=== PATIENT | male | born 1975 | race Caucasian/White ===

== ENCOUNTER 2017-01-18 08:20 | Emergency (ER) | payer OTHER ==
[2017-01-18 08:24] VITALS: TEMP 98.1; BMI 29.1
--- NOTE | 2017-01-18 09:00 | PDOC ---
History of Present Illness - General Chief Complaint: Palpitations Stated Complaint: PALPITATIONS Time Seen by Provider: 01/18/17 08:32 - History of Present Illness Initial Comments: 01/18/17 08:53 41 yo M with h/o HTN presents with palpitations. Pt. reports 48 hours ago experiencing positional dizziness described as room spinning and one episode of biliary emesis. Dizziness was aggravated with head movement. Dizziness has resolved this AM but patient reports onset of right arm numbness/tingling in fingertips. Palpitations of 24 hours duration. Also complains of general fatigue and posterior headache of 24 hour duration. + chronic chest pain and intermittent blurred vision. Denies fevers/chills, SOB, constipation/diarrhea, LOC, weakness. States that he was seen in ED ( 09/09/15) with similar complaints and negative head CT, and negative laboratory evaluation. PCP. Dr. Roberson. Drink 2 cups of coffee/day. 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 Past History - Past Medical History Allergies/Adverse Reactions: Allergies Allergy/AdvReac Type Severity Reaction Status Date / Time No Known Allergies Allergy Verified 01/18/17 08:25 Home Medications: Ambulatory Orders NK [No Known Home Medication] 09/09/15 Other medical history: denies - Immunization History Immunization Up to Date: Yes - Psycho/Social/Smoking Cessation Hx Suicidal Ideation: No Smoking History: Never smoked Hx Alcohol Use: No Drug/Substance Use Hx: No Review of Systems - Review of Systems Comments:: 01/18/17 09:02 GENERAL/CONSTITUTIONAL: No fever or chills. No weakness. HEAD, EYES, EARS, NOSE AND THROAT: No change in vision. No ear pain or discharge. No sore throat.- CARDIOVASCULAR: + chest pain. No shortness of breath RESPIRATORY: No cough, wheezing, or hemoptysis. GASTROINTESTINAL: No nausea, vomiting, diarrhea or constipation. GENITOURINARY: No dysuria, frequency, or change in urination. MUSCULOSKELETAL: + Headache. No joint or muscle swelling or pain. No neck or back pain. SKIN: No rash NEUROLOGIC: + vertigo. No loss of consciousness, or change in strength. . ENDOCRINE: No increased thirst. No abnormal weight change HEMATOLOGIC/LYMPHATIC: No anemia, easy bleeding, or history of blood clots. ALLERGIC/IMMUNOLOGIC: No hives or skin allergy. *Physical Exam - Vital Signs Last Vital Signs Temp Pulse Resp BP Pulse Ox 98.1 F 77 18 146/98 100 01/18/17 08:23 01/18/17 08:23 01/18/17 08:23 01/18/17 08:23 01/18/17 08:23 - Physical Exam Comments: 01/18/17 09:04 GENERAL: Awake, alert, and fully oriented, in no acute distress HEAD: No signs of trauma, normocephalic, atraumatic EYES: PERRLA, EOMI, sclera anicteric, conjunctiva clear ENT: Auricles normal inspection, hearing grossly normal, nares patent, oropharynx clear without exudates. Moist mucosa NECK: Normal ROM, supple, no lymphadenopathy, JVD, or masses LUNGS: No distress, speaks full sentences, clear to auscultation bilaterally HEART: Regular rate and rhythm, normal S1 and S2, no murmurs, rubs or gallops, peripheral pulses normal and equal bilaterally. EXTREMITIES: Normal inspection, Normal range of motion, no edema. No clubbing or cyanosis. NEUROLOGICAL: Cranial nerves II through XII grossly intact. Normal speech, normal gait, no focal sensorimotor deficits SKIN: Warm, Dry, normal turgor, no rashes or lesions noted. Heart Score/ECG Review - History History: Slightly suspicious - Electrocardiogram EKG: Normal - Age Age: </= 45 - Risk Factors Risk Factors Heart Score: Yes Hx Hypertension, Yes Hx Diabetes - ECG Intrepretation Rhythm: Regular Rhythm - Eighty Four Eighty Four: Left Eighty Four Deviation - QRS Widened: RBBB - ST and T Non Specific ST-T Wave changes: Yes ED Treatment Course - LABORATORY CBC & Chemistry Diagram: 01/18/17 09:00 01/18/17 09:00 - ADDITIONAL ORDERS Additional order review: Laboratory Results 01/18/17 01/18/17 01/18/17 09:00 08:49 08:49 Sodium 138 Potassium 3.8 Chloride 103 Carbon Dioxide 27 Anion Gap 8 BUN 19 H Creatinine 0.9 Creat Clearance w eGFR > 60 Random Glucose 116 H D Calcium 9.1 Total Bilirubin 0.6 D AST 22 D ALT 68 D Alkaline Phosphatase 117 Creatine Kinase 92 Troponin I < 0.02 Total Protein 7.7 Albumin 4.4 TSH 1.38 D Cancelled 01/18/17 09:00 RBC 5.61 H MCV 85.1 MCHC 34.2 RDW 13.8 MPV 9.8 Neutrophils % 61.0 Lymphocytes % 30.0 D Monocytes % 6.1 Eosinophils % 2.2 D Basophils % 0.7 Medical Decision Making - Medical Decision Making 01/18/17 09:05 41 yo M with h/o HTN presents with palpitations. Pt. complains of 48 hours positional vertigo and one episode of biliary emesis. New onset of right arm numbness/tingling in fingertips and palpitations within 24 hours. No other associated complaints. Physical exam unremarkable. Pt. hemodynamically stable. States that he was seen in ED ( 09/09/15) with similar complaints and negative head CT, and negative laboratory evaluation. Low suspicion for posterior CVA due to absent focal neuro complaints. DDx: BPPV ED Course: - CBC, CMP, TSH - EKG: NSR, LAD, RBBB 01/18/17 10:10 Lab evaluation unremarkable. Stable discharge. Cardiology referall for Holter monitor. *DC/Admit/Observation/Transfer Diagnosis at time of Disposition: Palpitations - Discharge Dispostion Disposition: HOME Condition at time of disposition: Good Admit: No - Referrals Referrals: Rick Stallings MD [Primary Care Provider] - - Patient Instructions Printed Discharge Instructions: DI for Arrhythmias, DI for Palpitations Additional Instructions: Please follow up with PCP and cardiology for possible holter test monitoring. Return to ED if you experience shorntess of breath, chest pain, weakness, or worsening symptoms.
[2017-01-18 09:06] LABS: BASOPHIL 0.7 % (0-2.0); EOSINOPHIL 2.2 % (0-4.5); MCH 29.1 pg (25.7-33.7); MCHC 34.2 g/dl (32.0-35.9); MEAN CELL VOLUME 85.1 fl (80-96); MEAN PLT VOLUME 9.8 fl (7.5-11.1); PLATELET COUNT 170 K/MM3 (134-434); RDW 13.8 % (11.9-15.9); WHITE BLOOD COUNT 6.2 K/mm3 (4.0-10.0)
[2017-01-18 09:41] LABS: ALBUMIN 4.4 g/dl (3.4-5.0); ANION GAP 8 (8-16); BILIRUBIN,TOTAL 0.6 mg/dL (0.2-1.0); CALCIUM 9.1 mg/dL (8.5-10.1); CO2 27 mmol/L (21-32); CREATININE 0.9 mg/dL (0.7-1.3); GLUCOSE,RANDOM 116 mg/dL (74-106); SGOT/AST 22 U/L (15-37); SGPT/ALT 68 U/L (12-78); TOT PROT 7.7 g/dl (6.4-8.2)
[2017-01-18 09:43] LABS: ALK PHOS 117 U/L (45-117)
[2017-01-18 09:43] LABS: CPK 92 IU/L (39-308); TROPONIN I < 0.02 ng/ml (0.00-0.05)
[2017-01-18 10:01] LABS: THYROID STIMULATING HORMONE 1.38 uIU/ml (0.358-3.74)
--- NOTE | 2017-01-18 10:09 | PDOC ---
Attending Attestation - HPI HPI: 01/18/17 10:09 Patient is a 41 year old male with significant past medical history of hypertension who presents to the ED with palpitations. Patient states that he was woken up from his sleep with intermittent palpitations with sudden onset he also reports headache, dizziness and intermittent chest pain. Patient states that the following symptoms have subsided while in the ED. He notes that he had similar episode last week that subsided on its own. 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 PCP - Dr. Negron - Physicial Exam PE: 01/18/17 10:09 GENERAL: Awake, alert, and fully oriented, in no acute distress HEAD: No signs of trauma EYES: PERRLA, EOMI, sclera anicteric, conjunctiva clear ENT: Auricles normal inspection, hearing grossly normal, nares patent, oropharynx clear without exudates. Moist mucosa NECK: Normal ROM, supple, no lymphadenopathy, JVD, or masses LUNGS: Breath sounds equal, clear to auscultation bilaterally. No wheezes, and no crackles HEART: Regular rate and rhythm, normal S1 and S2, no murmurs, rubs or gallops ABDOMEN: Soft, nontender, normoactive bowel sounds. No guarding, no rebound. No masses EXTREMITIES: Normal range of motion, no edema. No clubbing or cyanosis. No cords, erythema, or tenderness NEUROLOGICAL: Cranial nerves II through XII grossly intact. Normal speech. SKIN: Warm, Dry, normal turgor, no rashes or lesions noted - Medical Decision Making 01/18/17 10:11 Documentation prepared by LYNN Saunders, acting as medical aide for Sarai Saul MD. <Hailey Gillis - Last Filed: 01/18/17 10:09> - Resident Resident Name: Silvino Draper - ED Attending Attestation I have performed the following: I have examined & evaluated the patient, The case was reviewed & discussed with the resident, I agree w/resident's findings & plan, Exceptions are as noted - Medical Decision Making Pt with palpitations, dizziness intermittently. He has had similar symptoms in the past, intermittently. He is otherwise low risk for ACS. Will send labs including cardiac enzymes and TSH. As he has had this intermittently before, will refer to cardio outpatient, as he may require holter monitor. <Sarai Saul - Last Filed: 01/18/17 10:56>
[2017-01-18 11:38] VITALS: BP 136/78; PULSE 72
--- NOTE | 2017-01-18 22:06 | EKG ---
Test Reason : Blood Pressure : / mmHG Vent. Rate : 067 BPM Atrial Rate : 067 BPM P-R Int : 118 ms QRS Dur : 094 ms QT Int : 426 ms P-R-T Axes : 048 -38 -01 degrees QTc Int : 450 ms NORMAL SINUS RHYTHM LEFT AXIS DEVIATION RSR' OR QR PATTERN IN V1 SUGGESTS RIGHT VENTRICULAR CONDUCTION DELAY ABNORMAL ECG WHEN COMPARED WITH ECG OF 09-SEP-2015 11:32, NO SIGNIFICANT CHANGE WAS FOUND Confirmed by ROMEO MEMBRENO MD ([id number]) on 01/18/2017 10:05:54 PM Referred By: Confirmed By:ROMEO MEMBRENO MD
== END 2017-01-18 11:38 | disposition home or self-care (01) ==
LOC: JER 08:20
DX: R00.2 Palpitations (principal); I10 Essential (primary) hypertension; E11.9 Type 2 diabetes mellitus without complications
CPT/HCPCS: 36415; 71010-TC; 80053; 84443; 84484; 85025; 93005; 93010; 99284-25

== ENCOUNTER 2018-11-18 18:49 | Emergency (ER) | payer OTHER ==
[2018-11-18 18:55] VITALS: BP 119/85; PULSE 85; TEMP 98; BMI 29.1
--- NOTE | 2018-11-18 19:12 | PDOC ---
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 States feels is mildly unstable. Has had no twisting injury although played sports in the past. No fever, no numbness or tingling to feet. Occurred: reports: just prior to arrival Severity: reports: mild, moderate Pain Location: reports: lower extremity Modifying Factors: improves with: None (left knee) Loss of Consciousness: no loss of consciousness Associated Symptoms (Fall): denies symptoms Past History - Travel Traveled outside of the country in the last 30 days: No Close contact w/someone who was outside of country & ill: No - Past Medical History Allergies/Adverse Reactions: Allergies Allergy/AdvReac Type Severity Reaction Status Date / Time No Known Allergies Allergy Verified 11/18/18 18:54 Home Medications: Ambulatory Orders Leg Brace [Knee Brace] 1 each MC DAILY #1 each 11/18/18 Naproxen [Naprosyn -] 500 mg PO BID #30 tablet 11/18/18 COPD: No Diabetes: Yes (no meds) HTN: Yes Hypercholesterolemia: Yes (no meds) - Immunization History Immunization Up to Date: Yes - Suicide/Smoking/Psychosocial Hx Smoking History: Never smoked Hx Alcohol Use: No Drug/Substance Use Hx: No Review of Systems - Review of Systems Able to Perform ROS?: Yes Is the patient limited Guinean proficient: Yes Constitutional: Yes: Symptoms Reported, See HPI, Malaise HEENTM: No: Symptoms Reported Respiratory: No: Symptoms reported Musculoskeletal: Yes: Symptoms Reported, See HPI, Joint Pain, Joint Swelling All Other Systems: Reviewed and Negative *Physical Exam - Vital Signs Last Vital Signs Temp Pulse Resp BP Pulse Ox 98 F 85 20 119/85 99 11/18/18 18:53 11/18/18 18:53 11/18/18 18:53 11/18/18 18:53 11/18/18 18:53 - Physical Exam General Appearance: Yes: Nourished, Appropriately Dressed, Apparent Distress, Mild Distress HEENT: positive: HILARIO, Normal ENT Inspection, TMs Normal, Pharynx Normal Neck: positive: Supple Musculoskeletal: positive: Normal Inspection, Decreased Range of Motion Extremity: positive: Normal Capillary Refill, Tender, Swelling (patella is mobile without crepitus or step-offs, unable to assess anterior drawer sinus patient has guarding and swelling. Pain is reproduced primarily at the superior insertion site of MCL of left knee. Has no posterior fossa tenderness, no pretibial tenderness, but has some swelling and some mild ecchymosis noted at knee capsule) Integumentary: positive: Normal Color, Swelling, Bruising Neurologic: positive: case checker II-XII NML intact, Fully Oriented, Alert, Normal Mood/ Affect, Normal Response, Motor Strength / Progress Note - Progress Note Progress Note: Left knee sprain, probable MCL. Immobilizer placed, encouraged to DUGLAS E, NSAIDs , and follow-up with orthopod on Wednesday *DC/Admit/Observation/Transfer Diagnosis at time of Disposition: Knee MCL sprain Qualifiers: Encounter type: initial encounter Laterality: left Qualified Code(s): S83.412A - Sprain of medial collateral ligament of left knee, initial encounter - Discharge Dispostion Disposition: HOME Condition at time of disposition: Stable Decision to Admit order: No - Referrals Referrals: Dominic Almonte DO [Staff Physician] - - Patient Instructions Printed Discharge Instructions: DI for Knee Sprain Additional Instructions: Rest, ice to area on and off for 15 minutes 4-6 times a day Avoid heavy lifting or exercise until pain and swelling is resolved or until further directed Keep area highly elevated to reduce swelling Use splints/Charlie wrap as directed Followup with orthopedist in one to 2 days if not improving, if significantly improved may wait one week for followup with orthopedist May use ibuprofen every 6 hours as needed for pain - Post Discharge Activity Forms/Work/School Notes: Back to Work
[2018-11-18] MEDS ORDERED: NAPROXEN 500 MG TABLET (FP) PO ONE (19:22)
[2018-11-18] MEDS ORDERED: NAPROXEN 500 MG TABLET (FP) ONE (19:28)
== END 2018-11-18 19:42 | disposition home or self-care (01) ==
LOC: JER 18:49 → JERFT 18:49
PROC: 2W3RXYZ Immobilization of Left Lower Leg using Other Device (ICD-10-PCS; principal; 2018-11-18)
DX: S83.412A Sprain of medial collateral ligament of left knee, initial encounter (principal); X50.9XXA Other and unspecified overexertion or strenuous movements or postures, initial encounter; Y93.02 Activity, running; Y92.488 Other paved roadways as the place of occurrence of the external cause; Y99.8 Other external cause status
CPT/HCPCS: 29530; 99281-25

== ENCOUNTER 2019-05-22 05:32 | Emergency (ER) | payer OTHER ==
[2019-05-22] MEDS ORDERED: KETOROLAC TROMETHAMINE 30 MG/1 ML VIAL IVPUSH ONE (06:02)
[2019-05-22] MEDS ORDERED: ACETAMINOPHEN 1000 MG/100 ML VIAL (NON FORMULARY) IVPB ONE (06:03)
[2019-05-22] MEDS ORDERED: SODIUM CHLORIDE 0.9% 500 ML INFUS.BAG IV ONE (06:04)
[2019-05-22] MEDS ORDERED: KETOROLAC TROMETHAMINE 15 MG/ML VIAL ONE (06:09)
[2019-05-22] MEDS ORDERED: ACETAMINOPHEN INJECTION 100 ML IVPB ONE (06:09)
[2019-05-22 06:15] VITALS: BMI 31.6
--- NOTE | 2019-05-22 06:17 | PDOC ---
History of Present Illness - General Chief Complaint: Pain Stated Complaint: PAIN LEFT SIDE Time Seen by Provider: 05/22/19 06:03 - History of Present Illness Initial Comments: 05/22/19 06:13 44 yo M no PMH, presenting with LLQ pain. Reports that it began around 0440 this morning, 02/23, sharp, radiating from LLQ downwards into groin. Never had this in the past, no history of kidney stones. Denies CP, SOB, N/V, fevers/chills, constipation/diarrhea. No surgeries in the past. Past History - Past Medical History Allergies/Adverse Reactions: Allergies Allergy/AdvReac Type Severity Reaction Status Date / Time No Known Allergies Allergy Verified 05/22/19 05:59 Home Medications: Ambulatory Orders Ibuprofen 600 mg PO QID PRN #28 tablet 05/22/19 COPD: No Diabetes: Yes (no meds) HTN: Yes Hypercholesterolemia: Yes (no meds) - Immunization History Immunization Up to Date: Yes - Psycho Social/Smoking Cessation Hx Smoking History: Never smoked Hx Alcohol Use: No Drug/Substance Use Hx: No Review of Systems - Review of Systems Comments:: 05/22/19 07:13 GENERAL/CONSTITUTIONAL: No fever or chills. No weakness. HEAD, EYES, EARS, NOSE AND THROAT: No change in vision. No ear pain or discharge. No sore throat. CARDIOVASCULAR: No chest pain or shortness of breath. RESPIRATORY: No cough, wheezing, or hemoptysis. GASTROINTESTINAL: No nausea, vomiting, diarrhea or constipation. GENITOURINARY: No dysuria, frequency, or change in urination. MUSCULOSKELETAL: No joint or muscle swelling or pain. No neck or back pain. SKIN: No rash NEUROLOGIC: No headache, vertigo, loss of consciousness, or change in strength/ sensation. ENDOCRINE: No increased thirst. No abnormal weight change. HEMATOLOGIC/LYMPHATIC: No anemia, easy bleeding, or history of blood clots. ALLERGIC/IMMUNOLOGIC: No hives or skin allergy *Physical Exam - Vital Signs Last Vital Signs Temp Pulse Resp BP Pulse Ox 97.7 F 71 20 149/91 99 05/22/19 05:32 05/22/19 05:32 05/22/19 05:32 05/22/19 05:32 05/22/19 05:32 - Physical Exam 05/22/19 06:15 Gen: well-developed, well-nourished, in distress Neuro: AAOX4, CN II-XII intact, FTN intact, EOMI, PERRLA, 5/5 strength, SILT HEENT: atraumatic, normocephalic, dry mucous membranes Neck: trachea midline, supple CV: regular rate, regular rhythm, no murmurs, rubs, or gallops Pulm: CTA b/l, no wheezing Abd: soft, non-distended, LLQ tenderness, no L CVA tenderness MSK: full ROM, intact pulses Extr: no edema, no deformities Skin: warm, dry ED Treatment Course - LABORATORY CBC & Chemistry Diagram: 05/22/19 06:10 05/22/19 06:10 Medical Decision Making - Medical Decision Making 05/22/19 06:17 Concern for kidney stone. - CBC, CMP - UA/UC - spiral CT - toradol - Ofirmev - fluids 05/22/19 07:02 CT scan with mild left sided nephrolithiasis, 5mm kidney stone in L distal ureter. Will monitor pain, send ibuprofen, likely dc with uro follow up. Discharge - Discharge Information Problems reviewed: Yes Clinical Impression/Diagnosis: Kidney stone on left side Condition: Improved - Additional Discharge Information Prescriptions: Ibuprofen 600 mg PO QID PRN #28 tablet PRN Reason: Pain - Follow up/Referral Referrals: Romeo Cortez MD [Primary Care Provider] - Jatinder Baxter MD [Staff Physician] - - Patient Discharge Instructions Patient Printed Discharge Instructions: DI for Kidney Stones Additional Instructions: You were seen with abdominal pain. A CT scan was performed, which showed a 5mm kidney stone. This is likely to pass on its own, however, it is very important that you follow up with a urologist. Follow up with your primary care doctor within one week. Return to the ED if you develop worsening symptoms. - Post Discharge Activity
[2019-05-22 06:22] LABS: BASO % 0.4 % (0-2.0); HEMATOCRIT 45.5 % (35.4-49); HEMOGLOBIN 15.8 GM/dL (11.7-16.9); LYMPH % 35.5 % (8-40); MCH 29.5 pg (25.7-33.7); MCHC 34.8 g/dl (32.0-35.9); MEAN CELL VOLUME 84.8 fl (80-96); MONO % 8.4 % (3.8-10.2); NEUT % 50.7 % (42.8-82.8); PLATELET COUNT 155 K/MM3 (134-434); RBC 5.37 M/mm3 (4.00-5.60); RDW 13.1 % (11.9-15.9); WHITE BLOOD COUNT 7.1 K/mm3 (4.0-10.0)
--- NOTE | 2019-05-22 06:41 | PDOC ---
Attending Attestation - Resident Resident Name: Ashleigh Song - ED Attending Attestation I have performed the following: I have examined & evaluated the patient, The case was reviewed & discussed with the resident, I agree w/resident's findings & plan, Exceptions are as noted - HPI HPI: 05/22/19 06:40 44 years old with sudden onset left lower quadrant pain no prodrome now with some left flank pain as well no previous history of kidney stones pain is persistent constant moderate to severe no exacerbating or alleviating factors. - Physicial Exam PE: 05/22/19 06:40 Vitals: Triage Vital signs reviewed General Appearance: No acute distress, well nourished well developed, Head: Atraumatic, Cardiac: Regular rate and rhythym, no murmurs, no rubs, no gallops, Lungs: Clear to auscultation bilateral, good air movement bilaterally, Abdomen: Soft, non distended, normal bowel sounds, non tender to palpation Musculoskeletal: Left CVA tenderness palpation. Extremities: Full range of motion to all extremities, no cyanosis, clubbing, or edema Skin: Warm and dry, no rashes or lesions, no rash, no petechiae Psych: Normal mood, normal affect there is an override that - Medical Decision Making 05/22/19 06:41 History and examination consistent with renal colic we will check labs pain meds hydrate CAT scan observe and reassess
[2019-05-22 06:51] LABS: ALBUMIN 4.1 g/dl (3.4-5.0); BILIRUBIN,TOTAL 0.4 mg/dL (0.2-1); BLOOD UREA NITROGEN 22.1 mg/dL (7-18); CALCIUM 8.8 mg/dL (8.5-10.1); CREATININE 1.2 mg/dL (0.55-1.3); POTASSIUM 4.1 mmol/L (3.5-5.1); TOT PROT 7.4 g/dl (6.4-8.2)
[2019-05-22 06:51] LABS: EPI CELLS 0.3 /HPF (0-5/HPF); HYALINE CASTS 2 /lpf (0-8); URINE APPEARANCE CLEAR; URINE BACTERIA 2.1 /hpf (NEGATIVE); URINE BILIRUBIN NEGATIVE (NEGATIVE); URINE COLOR YELLOW; URINE GLUCOSE (UA) NEGATIVE (NEGATIVE); URINE KETONE NEGATIVE (NEGATIVE); URINE LEUK ESTERASE NEGATIVE (NEGATIVE); URINE NITRITE NEGATIVE (NEGATIVE); URINE PROTEIN NEGATIVE (NEGATIVE); URINE RBC 1 /hpf (0-4); URINE UROBILINOGEN 0.2 mg/dL (0.2-1.0); URINE WBC 0 /hpf (0-5)
--- NOTE | 2019-05-22 07:25 | PDOC ---
*Physical Exam - Vital Signs Last Vital Signs Temp Pulse Resp BP Pulse Ox 97.7 F 71 20 149/91 99 05/22/19 05:32 05/22/19 05:32 05/22/19 05:32 05/22/19 05:32 05/22/19 05:32 ED Treatment Course - LABORATORY CBC & Chemistry Diagram: 05/22/19 06:10 05/22/19 06:10 - ADDITIONAL ORDERS Additional order review: Laboratory Results 05/22/19 05/22/19 06:38 06:10 Sodium 140 Potassium 4.1 Chloride 108 H Carbon Dioxide 23 Anion Gap 9 BUN 22.1 H Creatinine 1.2 Est GFR (CKD-EPI)AfAm 84.73 Est GFR (CKD-EPI)NonAf 73.10 Random Glucose 155 H Calcium 8.8 Total Bilirubin 0.4 AST 56 H ALT 149 H Alkaline Phosphatase 108 Total Protein 7.4 Albumin 4.1 Urine Color Yellow Urine Appearance Clear Urine pH 5.0 Ur Specific [place] 1.022 Urine Protein Negative Urine Glucose (UA) Negative Urine Ketones Negative Urine Blood 1+ H Urine Nitrite Negative Urine Bilirubin Negative Urine Urobilinogen 0.2 Ur Leukocyte Esterase Negative Urine WBC (Auto) 0 Urine RBC (Auto) 1 Urine Casts (Auto) 2 U Epithel Cells (Auto) 0.3 Urine Bacteria (Auto) 2.1 05/22/19 06:10 RBC 5.37 MCV 84.8 MCHC 34.8 RDW 13.1 MPV 10.0 Neutrophils % 50.7 Lymphocytes % 35.5 Monocytes % 8.4 Eosinophils % 5.0 H D Basophils % 0.4 - Medications Given in the ED: ED Medications Discontinued Medications Generic Name Dose Route Start Last Admin Trade Name Freq PRN Reason Stop Dose Admin Acetaminophen 1,000 mg 05/22/19 06:03 05/22/19 06:18 Ofirmev Injection - IVPB 05/22/19 06:04 1,000 mg ONCE ONE Administration Ketorolac Tromethamine 15 mg 05/22/19 06:02 05/22/19 06:18 Toradol Injection - IVPUSH 05/22/19 06:03 15 mg ONCE ONE Administration Sodium Chloride 1,000 ml 05/22/19 06:04 05/22/19 06:19 Normal Saline - IV 05/22/19 06:05 1,000 ml ONCE ONE Administration Medical Decision Making - Medical Decision Making 05/22/19 07:24 Patient sign-out received from Dr. Song Patient discharge pending pain control, Rx sent to pharmacy 05/22/19 08:44 Patient reports considerable improvement in symptoms Return precautions discussed Dispo: Home Discharge - Discharge Information Problems reviewed: Yes Clinical Impression/Diagnosis: Kidney stone on left side Condition: Improved Disposition: HOME - Admission No - Additional Discharge Information Prescriptions: Ibuprofen 600 mg PO QID PRN #28 tablet PRN Reason: Pain - Follow up/Referral Referrals: Jatinder Baxter MD [Staff Physician] - Romeo oCrtez MD [Primary Care Provider] - - Patient Discharge Instructions Patient Printed Discharge Instructions: DI for Kidney Stones Additional Instructions: You were seen with abdominal pain. A CT scan was performed, which showed a 5mm kidney stone. This is likely to pass on its own, however, it is very important that you follow up with a urologist. Follow up with your primary care doctor within one week. Return to the ED if you develop worsening symptoms. - Post Discharge Activity
[2019-05-22 09:04] VITALS: BP 130/91; PULSE 82; TEMP 98
== END 2019-05-22 09:00 | disposition home or self-care (01) ==
LOC: JER 05:32
PROC: 3E033NZ Introduction of Analgesics, Hypnotics, Sedatives into Peripheral Vein, Percutaneous Approach (ICD-10-PCS; principal; 2019-05-22)
PROC: 3E0333Z Introduction of Anti-inflammatory into Peripheral Vein, Percutaneous Approach (ICD-10-PCS; 2019-05-22)
DX: N20.2 Calculus of kidney with calculus of ureter (principal); I10 Essential (primary) hypertension; E11.9 Type 2 diabetes mellitus without complications; E78.00 Pure hypercholesterolemia, unspecified
CPT/HCPCS: 36415; 74176-TC; 80053; 81003; 85025; 87086; 96374; 96375; 99284-25; J0131

== ENCOUNTER 2024-06-01 09:39 | Emergency (ER) | payer OTHER ==
[2024-06-01 09:51] VITALS: BP 137/93; PULSE 95; RESP 18; TEMP 98.1; BMI 29.9
[2024-06-01 11:56] LABS: BASO % 0.4 % (0-2.0); HEMOGLOBIN 15.9 GM/dL (11.7-16.9); MCH 30.1 pg (25.7-33.7); MCHC 35.3 g/dl (32.0-35.9); MEAN CELL VOLUME 85.4 fl (80-96); MEAN PLT VOLUME 10.1 fl (7.5-11.1); MONO % 6.6 % (3.8-10.2); PLATELET COUNT 175 10^3/uL (134-434); RBC 5.27 M/mm3 (4.00-5.60); RDW 13.6 % (11.9-15.9); WHITE BLOOD COUNT 6.4 K/mm3 (4.0-10.0)
[2024-06-01] MEDS ORDERED: ACETAMINOPHEN INJECTION 100 ML ONE (12:02)
[2024-06-01 12:04] LABS: INR 0.97 (0.83-1.09)
[2024-06-01 12:05] LABS: ACTIVATED PTT 35.7 SECONDS (25.2-36.5)
[2024-06-01] MEDS: ACETAMINOPHEN 1000 MG/100 ML BAG IVPB ONE (12:15)
[2024-06-01] MEDS: SODIUM CHLORIDE 0.9% 500 ML INFUS.BAG IV ONE (12:15)
[2024-06-01 12:17] LABS: POTASSIUM 3.9 mmol/L (3.5-5.1)
[2024-06-01 12:19] LABS: ALBUMIN 4.2 g/dl (3.4-5.0); CALCIUM 9.1 mg/dL (8.5-10.1)
[2024-06-01 12:20] LABS: BLOOD UREA NITROGEN 20.7 mg/dL (7-18)
[2024-06-01 12:23] LABS: CREATININE 0.9 mg/dL (0.55-1.3)
[2024-06-01 12:24] LABS: BILIRUBIN,TOTAL 0.6 mg/dL (0.2-1); TOT PROT 7.9 g/dl (6.4-8.2)
[2024-06-01 13:01] LABS: MAGNESIUM 2.3 mg/dL (1.8-2.4)
[2024-06-01 13:16] LABS: HIV INTERPRETATION NEGATIVE (NEGATIVE)
== END 2024-06-01 14:21 | disposition home or self-care (01) ==
LOC: JER 09:39
PROC: 3E033NZ Introduction of Analgesics, Hypnotics, Sedatives into Peripheral Vein, Percutaneous Approach (ICD-10-PCS; principal; 2024-06-01)
DX: R00.2 Palpitations (principal); R07.89 Other chest pain; R51.9 Headache, unspecified; R20.2 Paresthesia of skin
CPT/HCPCS: 36415; 71046-TC-FY; 80053; 82962; 83735; 84443; 84484; 85025; 85610; 85730; 86803; 87389; 93005; 93010; 99285-25; J0131